=== PATIENT | male | born 1965 | race Caucasian/White ===

== ENCOUNTER 2017-08-13 20:19 | Inpatient (IN) | payer OTHER ==
[~2017-08-13] VITALS: Ht 180.3 cm; Wt 136.1 kg
[2017-08-13 20:24] VITALS: BP 156/87
[2017-08-13] MEDS ORDERED: HUMALOG100 UNIT/1 SUBQ (20:30)
[2017-08-13] MEDS ORDERED: LANTUS100 UNIT/M SUBQ (20:30)
[2017-08-13 20:55] LABS: ABSOLUTE BASOPHILS 0.1 thou/uL (0.0-0.2); ABSOLUTE EOSINOPHILS 0.1 thou/uL (0.0-0.7); ABSOLUTE LYMPHOCYTES 2.1 thou/uL (0.8-5.3); ABSOLUTE MONOCYTES 0.9 thou/uL (0.0-1.2); ABSOLUTE NEUTROPHILS 6.9 thou/uL (1.6-8.1); EOSINOPHILS 1.2 %; HEMATOCRIT 41.3 % (42.0-52.0); HEMOGLOBIN 13.7 gm/dL (14.0-18.0); LYMPHOCYTES 21.2 %; MCH 27.2 pg (26.0-34.0); MCHC 33.2 g/dL (28.0-37.0); MONOCYTES 8.7 %; MPV 8.6 fl. (7.2-11.1); NUCLEATED RBCS 0 /100WBC; PLATELET COUNT* 234 thou/uL (150-400); POLYS 67.9 %; RBC 5.04 mil/uL (4.50-6.00); RDW-CV 15.7 % (10.5-14.5); WBC 10.1 thou/uL (4.0-11.0)
[2017-08-13 21:17] LABS: CALCIUM 8.9 mg/dL (8.5-10.1); CREATININE 1.3 mg/dL (0.6-1.3); POTASSIUM 4.7 mmol/L (3.5-5.1); TOTAL BILIRUBIN 0.4 mg/dL (<0.1-1.0); TOTAL PROTEIN 7.6 g/dL (6.4-8.2)
[2017-08-13 21:41] VITALS: BP 147/85
[2017-08-13 22:51] VITALS: BP 150/88
[2017-08-14 00:51] LABS: URINE BILIRUBIN NEGATIVE (Negative); URINE BLOOD 2+ (Negative); URINE CLARITY CLEAR; URINE COLOR YELLOW; URINE GLUCOSE-RANDOM 3+ (Negative); URINE LEUKOCYTES-REFLEX NEGATIVE (Negative); URINE NITRITE-REFLEX NEGATIVE (Negative); URINE PROTEIN NEGATIVE (Negative); URINE UROBILINOGEN 0.2 E.U./dl (0.2-1.0)
[2017-08-14 00:55] LABS: URINE KETONES 3+ (Negative)
[2017-08-14 01:53] LABS: BACTERIA-REFLEX None Seen /HPF (None Seen); CASTS None Seen /LPF (None Seen); CRYSTALS None Seen /LPF (None Seen); SQUAMOUS 0-3 Few /LPF (0-3); URINE RBC 0-2 Rare /HPF (0-2); URINE WBC-REFLEX 0-5 Rare /HPF (0-5)
[2017-08-14 09:30] VITALS: BP 139/78
[2017-08-14 16:00] VITALS: BP 132/46
[2017-08-14 21:00] VITALS: BP 141/80
[2017-08-15 04:22] LABS: HEMATOCRIT 38.9 % (42.0-52.0); HEMOGLOBIN 12.8 gm/dL (14.0-18.0); MCHC 32.9 g/dL (28.0-37.0); MCV 82.1 fL (80.0-100.0); MPV 8.5 fl. (7.2-11.1); RBC 4.73 mil/uL (4.50-6.00); RDW-CV 15.7 % (10.5-14.5); WBC 10.8 thou/uL (4.0-11.0)
[2017-08-15 04:29] LABS: CALCIUM 8.3 mg/dL (8.5-10.1); CREATININE 0.7 mg/dL (0.6-1.3); MAGNESIUM 1.8 mg/dL (1.8-2.4); POTASSIUM 3.6 mmol/L (3.5-5.1)
[2017-08-15 09:00] VITALS: BP 146/81
[2017-08-15 16:37] VITALS: BP 139/79
[2017-08-15 21:20] VITALS: BP 147/80
[2017-08-16 02:08] LABS: GLYCOHEMOGLOBIN (HGB A1C) 12.4 % (4.8-5.6)
[2017-08-16 04:23] LABS: HEMATOCRIT 37.8 % (42.0-52.0); HEMOGLOBIN 12.5 gm/dL (14.0-18.0); MCH 27.1 pg (26.0-34.0); MCHC 33.1 g/dL (28.0-37.0); MCV 81.9 fL (80.0-100.0); MPV 8.4 fl. (7.2-11.1); RBC 4.62 mil/uL (4.50-6.00); RDW-CV 15.9 % (10.5-14.5); WBC 10.2 thou/uL (4.0-11.0)
[2017-08-16 04:38] LABS: CALCIUM 7.8 mg/dL (8.5-10.1); CREATININE 0.7 mg/dL (0.6-1.3); MAGNESIUM 1.7 mg/dL (1.8-2.4); POTASSIUM 3.8 mmol/L (3.5-5.1)
[2017-08-16 08:00] VITALS: BP 145/92
[2017-08-16] MEDS ORDERED: KEFLEX500 M1 PO (08:02)
[2017-08-16 16:07] VITALS: BP 146/94
[2017-08-16 20:00] VITALS: BP 159/83
[2017-08-16 23:58] VITALS: BP 124/73
[2017-08-17 04:00] VITALS: BP 137/78
[2017-08-17 09:23] VITALS: BP 137/78
[2017-08-17 09:32] VITALS: BP 137/78
[2017-08-17 10:11] VITALS: BP 137/78
--- NOTE | 2017-08-22 12:45 | CON ---
[address] [id number] CONSULTATION Name: LENNIE HARMON Room: [address] IN .R.#: [id number] Admission: 08/13/17 Attend Phys: Renetta Matta Discharge: 08/17/17 Date of : 63 Report #: [id number] THIS REPORT FOR: //name// CC: Alice Osuna Kyler Daniele DATE OF SERVICE: 08/14/2017 CHIEF COMPLAINT: Podiatric consultation for paronychia of the left hallux with left lower extremity cellulitis. HISTORY OF PRESENT ILLNESS: The patient is a 51-year-old male who was admitted through the Emergency Department with increased redness, inflammation and swelling to the left leg with ingrown, infected left great toenail. The left great toenail was last treated by his primary care physician in May 2017. He has not sought further care. He relates fevers of 102 since last with nausea. PAST MEDICAL HISTORY: Significant for type 2 diabetes mellitus and venous insufficiency. He is currently on parenteral vancomycin and ceftriaxone with good tolerance. Left foot x-ray negative for bone destruction. Blood cultures pending. LABORATORY DATA: WBC 10.1, RBC 5.04, hemoglobin 13.7, hematocrit 41.3, platelets 234. BUN 19, creatinine 1.3, glucose was 568. Albumin 3.0. PHYSICAL EXAMINATION: Carlos paronychia of the left hallux, medial toenail border. There is incurvation of the nail with localized inflammation, edema and granulation tissue. There is cellulitis to the left dorsal foot and lower leg with no blisters or open lesions. He has palpable dorsalis pedis and posterior tibial pulses bilaterally. No pallor or cyanosis noted. IMPRESSION: Paronychia at left hallux with left lower extremity cellulitis, complicated by type 2 diabetes mellitus and venous insufficiency. PLAN: I will perform a surgical incision and drainage of the offending toenail border under local anesthesia tomorrow. I cleansed the area and dressed it with sterile gauze. The patient to rest, elevate the extremity tonight. <ELECTRONICALLY SIGNED> By: Brian Cervantes DPM 08/22/17 1245 [id number] [id number] Cervantes DPM /nt
--- NOTE | 2017-08-22 12:45 | CON ---
[address] [address] CONSULTATION Name: LENNIE HARMON Room: [address] IN M.R.#: [id number] Admission: 08/13/17 Attend Phys: Renetta Matta Discharge: 08/17/17 Date of : 63 Report #: [id number] THIS REPORT FOR: //name// CC: Alice Osuna Kyler Mendozaith DATE OF SERVICE: 08/15/2017 CHIEF COMPLAINT: Paronychia to left hallux, medial border with left leg cellulitis. He has type 2 diabetes mellitus with poor glycemic control. His blood glucose has been running from the 200s to low 400s during the hospitalization. He has been afebrile. Blood cultures negative x 2. He denies pain to the left leg or great toe. He is on parenteral ceftriaxone and vancomycin with good tolerance. He has good appetite. LABORATORY DATA: WBC 10.8, RBC is 4.73, hemoglobin 12.8, hematocrit 38.9, platelets 224, BUN 9, creatinine 0.7, glucose 246. PHYSICAL EXAMINATION: Decreased inflammation to the left leg and hallux at the site of paronychia. There is no active bleeding or drainage. There is foul odor to the medial border of the hallux with hypertrophy of the ungual labia. Chronic venous insufficiency with stasis dermatitis bilaterally. Palpable dorsalis pedis and posterior tibial pulses bilaterally with immediate digital capillary refill, onychomycosis x 10. IMPRESSION: Paronychia, left hallux with left lower extremity cellulitis. PLAN: Incision and drainage of the left hallux medial toenail border was performed under 5 mL of 1% lidocaine. I excised the medial nail border and flushed it with wound cleanser. It was dried and dressed with Aquacel Ag and sterile gauze. Josephine was placed to the leg with Tristen wraps to below the knee for edema control. The remaining toenails are also manually debrided. The patient may bathe as normal and get the toe wet. Recommend daily dressing change with Aquacel Ag and gauze. We will follow the patient tomorrow. <ELECTRONICALLY SIGNED> By: Brian Cervantes DPM 08/22/17 1245 [id number] [id number] Cervantes DPM /nt
== END 2017-08-17 10:11 | disposition home or self-care (01) | DRG 580 ==
LOC: M.ERS 20:19 → M.ORTHSURG 20:36 → M.TBA-ER 20:36 → M.ORTHSURG 21:36
PROVIDERS: Internal Medicine; Physician Assistant; ADMIT Internal Medicine
DX: L03.032 Cellulitis of left toe (principal); L03.116 Cellulitis of left lower limb; Z68.41 Body mass index [BMI] 40.0-44.9, adult; E11.65 Type 2 diabetes mellitus with hyperglycemia; E66.01 Morbid (severe) obesity due to excess calories; E11.40 Type 2 diabetes mellitus with diabetic neuropathy, unspecified; Z79.4 Long term (current) use of insulin; Z79.899 Other long term (current) drug therapy